=== PATIENT | female | born 1975 | race Hispanic/Latino ===

== ENCOUNTER 2017-02-02 05:48 | Observation (INO) | payer OTHER ==
[2017-01-29 11:40] LABS: Basophils % (Auto) 0.8 % (0.0-1.8); Eosinophils % (Auto) 4.4 % (0.0-4.3); Hematocrit 38.1 % (30.3-42.9); Hemoglobin 12.4 gm/dl (10.1-14.3); Mean Corpuscular HGB Conc 33 % (30-34); Mean Corpuscular Hemoglobin 29 pg (28-32); Mean Corpuscular Volume 89 fl (79-97); Platelet Count 334 K/mm3 (140-440); Red Blood Count 4.29 M/mm3 (3.65-5.03); Red Cell Distribution Width 14.1 % (13.2-15.2); White Blood Count 6.8 K/mm3 (4.5-11.0)
--- NOTE | 2017-02-01 20:12 | History and Physical Report ---
History of Present Illness Date of examination: 01/29/17 Chief complaint: Menometrorrhagia unresponsive to medical therapy and uterine fibriods History of present illness: The patient presents with abnormal periods. The patient admits to monthly self breast exams, regular exercise and healthy diet. The patient complains of heavy bleeding. Menstrual periods have been with excessive flow. Bleeds heavy 3-4/7days for 1year. She requires 3-4 pads that are saturated. She has been managed with OC's and has required Fe infusions for her anemia. Bleeding was unresponsive to OC's and now she desires hysterectomy. Past History : 3 Term Births: 2 Living Children: 2 Para: 2 Spont. Ab: 1 # 1 Delivery type: # 2 Delivery type: [employer] History Operations: Tubal Ligation Abnormal PAP: negative Uterine Anomaly: positive fibroids Infection History Hx of STD: None Active Medications (reviewed today): IBUPROFEN 800 MG TABS (IBUPROFEN) 1 po TID (PRN) OXYCODONE-ACETAMINOPHEN 5-325 MG TABS (OXYCODONE-ACETAMINOPHEN) 1-2po q6h FLONASE 50 MCG/ACT SUSP (FLUTICASONE PROPIONATE) 2 sprays, each nostril x1 qd ZYRTEC ALLERGY TABS (CETIRIZINE HCL TABS) LIDOCAINE PTCH (LIDOCAINE PTCH) TRANEXAMIC ACID 650 MG TABS (TRANEXAMIC ACID) 1300 mg(2 tabs) 3 times daily ( 3900 mg daily) for up to 5 days during monthly menstruation Current Allergies (reviewed today): No known allergies Past Medical History: Reviewed history from 12/24/2016 and no changes required: Wrist, pain managed by Dr. Potts (Orthopedist) Anemia Past Surgical History: Reviewed history from 12/24/2016 and no changes required: Tubal Ligation Family History Summary: Reviewed history and no changes required: 02/01/2017 Aunt - Has Family History of Cervical Cancer - maternal - Entered On: 01/19/2017 Other family member - Has No Family History of Biliary Tract Cancer - Entered On : 01/19/2017 Other family member - Has No Family History of Breast Cancer - Entered On: 2016 Other family member - Has No Family History of Brain Cancer - Entered On: 2016 Other family member - Has No Family History of Colon Cancer - Entered On: 2016 Other family member - Has No Family History of DVT/PE on OCP - Entered On: 2016 Other family member - Has No Family History of Kidney/Urinary Tract Cancer - Entered On: 01/19/2017 Other family member - Has No Family History of Ovarvian Cancer - Entered On: Other family member - Has No Family History of Pancreatic Cancer - Entered On: Other family member - Has No Family History of Stomach Cancer - Entered On: 01/19 Other family member - Has No Family History of Small Bowel Cancer - Entered On: 01/19/2017 Other family member - Has No Family History of Uterine Cancer - Entered On: 01/19 Father (biol.) - Has Family History of Melanoma - Entered On: 01/19/2017 General Comments - FH: Maternal uncle multiple myeloma Maternal uncle Lymphoma Social History: Reviewed history from 12/24/2016 and no changes required: Patient is Smoking History: Patient has never smoked. Risk Factors: Smoked Tobacco Use: Never smoker Alcohol use: yes Previous Tobacco Use: Signed On - 01/07/2017 Smoked Tobacco Use: Never smoker Drug use: no Previous Alcohol Use: Signed On - 01/07/2017 Alcohol use: yes Type: occ Drinks per day: social Exercise: yes Mammogram History: Date of Last Mammogram: 12/30/2016 Review of Systems General Denies fever, chills, sweats, anorexia, fatigue, weakness, malaise, weight loss and sleep disorder. Complains of menorrhagia. Denies vaginal discharge, incontinence, dysuria, hematuria, urinary frequency, amenorrhea, abnormal vaginal bleeding, pelvic pain, genital sores, decreased libido, painful periods, painful sex, urinary urgency, hot flashes, vaginal dryness, vaginal itching and vaginal odor. CV Denies chest pains, palpitations, syncope, dyspnea on exertion, orthopnea, PND and peripheral edema. Resp Denies cough, dyspnea at rest, excessive sputum, hemoptysis, wheezing and pleurisy. GI Denies nausea, vomiting, diarrhea, constipation, change in bowel habits, abdominal pain, melena, hematochezia, jaundice, gas/bloating, indigestion/ heartburn, dysphagia and odynophagia. Endo Denies cold intolerance, heat intolerance, polydipsia, polyphagia, polyuria and unusual weight change. Breast Denies left breast lump, right breast lump, nipple discharge, bloody discharge from nipple, breast pain, abnormal mammogram and breast enlargement. MS Denies back pain, joint pain, joint swelling, muscle cramps, muscle weakness, stiffness, arthritis, sciatica, restless legs, leg pain at night and leg pain with exertion. Derm Denies rash, itching, dryness and suspicious lesions. Neuro Denies paralysis, paresthesias, headache, seizures, tremors, vertigo, transient blindness, frequent falls, frequent headaches and difficulty walking. Psych Denies depression, anxiety, irritability and mood swings. Eyes Denies blurring, diplopia, irritation, discharge, vision loss, eye pain and photophobia. ENT Denies earache, ear discharge, tinnitus, decreased hearing, nasal congestion, nosebleeds, sore throat and hoarseness. Allergy Denies urticaria, allergic rash, hay fever and recurrent infections. Heme Denies abnormal bruising, bleeding and enlarged lymph nodes. Physical Exam Other Exams Abdomen: soft, non-tender Skin: no ulcers, xanthomas Extremities: normal alignment, no joint enlargement, crepitus, masses or tenderness; normal tone and strength Genitourinary Exam Vagina: normal appearance, no discharge, lesions. No evidence of cystocele or rectocele. Cervix: normal appearance, no lesions, no discharge Uterus: enlarged, fixed Adnexa: no masses or tenderness PHYSICAL EXAM Skin no ulcers, xanthomas Chest: respiratory effort normal, clear to auscultation CV: regular, normal S1-S2, no murmur, no rub, no gallop Abdomen: soft, non-tender Musculoskeletal: grossly normal ROM in joints, no joint tenderness or muscle weakness Neuro: grossly normal DTRs, sensation, strength, cranial nerves Extremities: normal alignment, no joint enlargement, crepitus, masses or tenderness; normal tone and strength [employer] Exams Vulva/Vagina: normal appearance, no discharge, lesions. No evidence of cystocele or rectocele. Cervix: normal appearance, no lesions, no discharge Uterus: enlarged, fixed Adnexae: no masses or tenderness Impression & Recommendations: Problem # 1: Excessive and frequent menstruation with irregular cycle (ICD- 626.6) (PUR76-L38.1) Diagnosis explained to patient . Questions answered. Discussed with patient various medical and surgical therapies common for treatment: Hormonal/medical therapy,endometrial ablation or hysterectomy. She desires to proceed with hysterectomy with removal of both of her fallopian tubes and any other indicated procedures. She desires ovarian conservation. She was informed she may require surgery later to have her ovaries removed for a benign or mailgnant condition. She was also informed she will not be able to get after her uterus is removed. Her updated medication list for this problem includes: Ibuprofen 800 Mg Tabs (Ibuprofen) ..... 1 po tid (prn) Problem # 2: Fibroids of uterus, Submucosal (ICD-218.0) (IKB19-Y42.0) Diagnosis explained to patient . Questions answered. Discussed with patient various medical, surgical and radioloigal therapies common for treatment: Hormonal/medical therapy, fibroid embolization, removal of fibroids or hysterectomy Her updated medication list for this problem includes: Ibuprofen 800 Mg Tabs (Ibuprofen) ..... 1 po tid (prn) Oxycodone-acetaminophen 5-325 Mg Tabs (Oxycodone-acetaminophen) ..... 1-2po q6h Consent reviewed and signed . Possible laparoscopy or laparotomy explained to patient. The risks and alternatives for this surgery were reviewed with the patient. She was informed of possible bleeding, infection, injury to bowel, bladder, ureters or other adjacent organs. The patient was instructed/informed the following: The normal length of hospital stay for this procedure. Nothing to eat or drink after midnight the evening prior to surgery. Clear liquids the day before surgery. Fleets enema the day prior to surgery. Pre-op instruction sheets given. Wound care instructions given. Infection precautions reviewed, patient to call for any signs or symptoms of infection. The usual discomforts associated with this procedure were detailed. Proper use of pain medicines was reviewed. Patient was given ample opportunity to have all her questions answered before signing informed consent. She voiced understanding and desires to proceed with the plan of care. Medications Added to Medication List This Visit: 1) Ibuprofen 800 Mg Tabs (Ibuprofen) .... 1 po tid (prn) 2) Oxycodone-acetaminophen 5-325 Mg Tabs (Oxycodone-acetaminophen) .... 1-2po q6h Prescriptions: IBUPROFEN 800 MG TABS (IBUPROFEN) 1 po TID (PRN) #30 x 1 Entered and Authorized by: Joy Leone MD Method used: Print then Give to Patient RxID: [id number] OXYCODONE-ACETAMINOPHEN 5-325 MG TABS (OXYCODONE-ACETAMINOPHEN) 1-2po q6h #30 x 0 Entered and Authorized by: Joy Leone MD Method used: Print then Give to Patient RxID: [id number] Medications and Allergies Allergies Allergy/AdvReac Type Severity Reaction Status Date / Time No Known Allergies Allergy Unverified 01/25/17 15:30 Home Medications Medication Instructions Recorded Confirmed Last Taken Type Cetirizine HCl [ZyrTEC] 10 mg PO DAILY 01/25/17 01/25/17 Unknown History Fluticasone [Flonase] 1 spray NS QDAY 01/25/17 01/25/17 Unknown History Active Meds: Active Medications Celecoxib (Celebrex) 200 mg PO PREOP NR Stop: 02/02/17 23:59 Famotidine (Pepcid) 20 mg PO PREOP NR Stop: 02/02/17 23:59 Fentanyl (Sublimaze) 100 mcg IV ONCE NR Stop: 02/02/17 18:00 Gabapentin (Neurontin) 600 mg PO PREOP NR Stop: 02/02/17 23:59 Lactated Ringer's (Lactated Ringers) 1,000 mls @ 75 mls/hr IV DIRECT KATY Cefazolin Sodium (Ancef/Sterile Water 2 Gm/20 Ml) 2 gm in 20 mls @ 80 mls/hr IV PREOP NR PRN Reason: Protocol Midazolam HCl (Versed) 2 mg IV PREOP NR Stop: 02/02/17 23:59 Exam Vital Signs Temp Pulse Resp BP 98.6 F 78 14 120/80 01/29/17 11:20 01/29/17 11:20 01/29/17 11:20 01/29/17 11:20 Results - Labs 01/29/17 11:30 Assessment and Plan - Patient Problems (1) Excessive and frequent menstruation with irregular cycle Status: Chronic (2) Fibroids Status: Chronic Qualifiers: Uterine leiomyoma location: U
[~2017-02-02 05:48] MED LIST: ANCEF/STERILE WATER 2 GM/20 ML 2 GM/20 ML SYRINGE IV NR
[2017-02-02] MEDS ORDERED: NEURONTIN PO NR (06:00)
[2017-02-02] MEDS ORDERED: PEPCID PO NR (06:00)
[2017-02-02] MEDS ORDERED: VERSED IV NR (06:00)
[2017-02-02] MEDS ORDERED: LACTATED RINGERS 1,000 ML IV SCH (06:00)
[2017-02-02] MEDS ORDERED: SUBLIMAZE IV NR (06:00)
[2017-02-02] MEDS ORDERED: NACL BACTERIOSTATIC INFILTRATI ONE (06:48)
[2017-02-02] MEDS ORDERED: DECADRON ONE ×2 (07:19→08:50)
[2017-02-02] MEDS ORDERED: CLONIDINE 1,000 MCG/10 ML VIAL EP ONE (07:20)
[2017-02-02] MEDS ORDERED: MARCAINE-EPI/PF 0.5%-1:200,000 INFILTRATI ONE (07:20)
[2017-02-02] MEDS ORDERED: XYLOCAINE 1% 20 mL ONE (07:21)
[2017-02-02] MEDS ORDERED: NEOSPORIN GU IR ONE ×2 (07:40→09:36)
[2017-02-02] MEDS ORDERED: ZEMURON IV ONE (07:42)
[2017-02-02] MEDS ORDERED: DIPRIVAN 10 MG/ML IV ONE (07:43)
[2017-02-02] MEDS ORDERED: XYLOCAINE MPF 2% ONE (07:43)
[2017-02-02] MEDS ORDERED: DILAUDID ONE ×3 (07:43→12:13)
[2017-02-02] MEDS ORDERED: CALCIUM CHLORIDE IV ONE ×2 (08:08→09:37)
[2017-02-02] MEDS ORDERED: THROMBIN (BOVINE) TP ONE ×2 (08:09→09:38)
[2017-02-02] MEDS ORDERED: PROAIR IH ONE (08:50)
[2017-02-02] MEDS ORDERED: ZOFRAN ONE (08:58)
[2017-02-02] MEDS ORDERED: LACTATED RINGERS 1,000 ML ONE (09:04)
[2017-02-02] MEDS ORDERED: NACL 0.9% IR ONE (09:36)
[2017-02-02] MEDS ORDERED: WATER FOR IRRIG STERILE IR ONE (11:00)
--- NOTE | 2017-02-02 11:32 | Anesthesia Day of Surgery ---
Anesthesia Day of Surgery - Day of Surgery Patient Examined: Yes Patient H&P Reviewed: Yes Patient is NPO: Yes
--- NOTE | 2017-02-02 11:32 | Anesthesia Consultation ---
Anesthesia Consult and Med Hx Date of service: 02/02/17 - Airway Anesthetic Teeth Evaluation: Good ROM Head & Neck: Adequate Mental/Hyoid Distance: Inadequate Mallampati Class: Class III Intubation Access Assessment: Possibly Difficult - Pulmonary Exam CTA: Yes - Cardiac Exam Cardiac Exam: RRR - Pre-Operative Health Status ASA Pre-Surgery Classification: ASA2 - Pulmonary Hx Sleep Apnea: Yes (No CPAP) - Central Nervous System Hx Psychiatric Problems: No - Hematic Hx Anemia: Yes - Other Systems Hx Alcohol Use: Yes (occas) Hx Cancer: No Hx Obesity: Yes
[2017-02-02] MEDS: DILAUDID IV PRN ×3 (11:40→12:15)
[2017-02-02] MEDS ORDERED: ZOFRAN IV PRN ×2 (11:42→13:15)
[2017-02-02] MEDS ORDERED: NARCAN 0.4 MG/1 ML IV PRN (13:15)
[2017-02-02] MEDS ORDERED: REGLAN IV PRN (13:15)
[2017-02-02] MEDS ORDERED: REGLAN PO PRN (13:15)
[2017-02-02] MEDS ORDERED: ZOFRAN PO PRN (13:15)
[2017-02-02] MEDS ORDERED: MORPHINE IV PRN ×2 (13:15)
[2017-02-02] MEDS ORDERED: PERCOCET 5/325 PO PRN (13:15)
[2017-02-02] MEDS: ANCEF/NS 1 GM/50 ML 1 GM/50 ML BAG IV SCH ×2 (14:32→21:36)
--- NOTE | 2017-02-02 14:34 | Operative Report ---
Operative Report Operative Report: Date of procedure: 02/02/2017 Pre-operative diagnosis: 1. Menometrorrhagia 2. Multiple uterine fibroids Post-operative diagnosis: 1. Menometrorrhagia 2. Multiple uterine fibroids 3. Pelvic adhesions Procedure name(s): 1. Robotic-assisted total hysterectomy with bilateral salpingectomy 2. Lysis of adhesions Surgeon: Joy Leone MD Licensed Occupational Therapist: Poppy Tinsley M.D. Anesthesia: General anesthesia Findings: Exam under anesthesia revealed the uterus to be approximately 14 weeks. Uterus was sounded to 11 cm. Grossly normal interrupted fallopian tubes bilaterally. Grossly normal ovaries. Anesthesiologist: Lloyd Levy M.D. Complications: None EBL: <100 mL Procedure: After risks, benefits complications, consequences, and alternatives for this procedure were discussed the patient, and she voiced understanding and desired to proceed, she was taken to the OR where general anesthesia was induced. She was placed in the dorsolithotomy position, exam under anesthesia was as above. She was then prepped and draped in usual sterile fashion. Timeout was performed. Henson catheter was introduced into the bladder. A bivalve speculum was introduced into the vagina, and the anterior lip of the cervix was grasped with a single-tooth tenaculum. The uterus was sounded to approximately 11 cm. The cervix was progressively dilated to allow the large the V care uterine manipulator. The tenaculum and speculum were removed and the Vcare manipulator was secured in place. A solution saturated laparotomy sponge was placed in the vagina. Sterile gloves were placed and attention was turned to the abdomen. A 12 mm Optiview trocar with scope and camera attached was placed through a midline vertical incision was approximately 10 cm superior to the elevated fundus of the uterus. The trocar with camera attached was placed under direct visualization. No bowel, bladder, ureteral or major blood vessel injury was noted. The abdomen was insufflated. Patient was placed in steep Trendelenburg position. Additional trocars were placed in the following positions: 8 mm robotic trocars were placed in the bilateral midclavicular lower abdominal region approximately 10 cm lateral to the midline incision. An additional 5 mm trocar was placed in the right lateral lower abdominal region approximately 2 cm superior to the anterior superior iliac crest. Omentum was adhered to the anterior abdominal wall. Using 30 W of energy the omentum was released. Using the 5 mm laparoscope through the lateral port and the Matty-Juju fascia closure device, the midline trocar was removed and a 0 Vicryl suture was placed through the midline fascia under direct visualization. The trocar was reintroduced. Once the trocars were in the proper position the robot was engaged. The instruments were introduced into the 8 mm trochars. Attention was turned to console. The uterus was elevated, the utero-ovarian ligaments were clamped, cauterized and incised bilaterally using 30 W of energy. Then the round ligaments were clamped , cauterized and incised bilaterally. The anterior leaf of the broad ligament was elevated with both blunt and sharp dissection the bladder flap was created. Once the bladder appeared to be away from the operative field attention was turned the posterior leaf of the broad ligaments. The ligaments were elevated and dissected away from the uterine vessels. Once the outline of the Vcare uterine manipulator was visualized, the uterine vessels were clamped and cauterized bilaterally. Once blanching of the uterus was noted, and the posterior outline of the Vcare manipulator was visualized, and confirmed, colpotomy was performed down to the cup of the manipulator. This incision was extended in a circumferential manner to 9:00 and 3:00 positions. The uterine vessels were clamped, cauterized and incised. The colpotomy was completed. The uterus was then delivered through the vagina. Attention was turned to the adnexa. The pelvis was irrigated with solution warm saline. Once hemostasis was noted the vagina was reapproximated using the V LOC 180 suture. The pelvis was again irrigated with warm normal saline. Once hemostasis was noted, platelet rich plasma was applied for further hemostasis followed by platelet poor plasma to prevent adhesions. Hemostasis was specifically noted on the omentum that was released from the anterior abdominal wall. The ureters were noted to be peristaltic and away from the operative field. The abdomen and pelvis were again visualized, no bowel, bladder, ureteral or major vascular injury was noted, hemostasis was also noted. The trocars were removed. The fascial incision was then ligated. The skin incisions were approximated using 4-0 Vicryl in a subcuticular manner. The incisions were then sealed with Octylseal.The laparotomy sponge was removed from the vagina, and hemostasis was noted. The patient tolerated the procedure well and was taken to recovery room in stable condition. Counts were correct x3. Clear yellow urine was noted draining into the Henson catheter was noted. Drainage of clear yellow urine from the Henson catheter was noted. No vaginal bleeding was noted and procedure.
[2017-02-02] MEDS ORDERED: TORADOL IV SCH (15:00)
[2017-02-02] MEDS ORDERED: TYLENOL PO PRN (15:00)
[2017-02-02] MEDS: TYLENOL PO SCH ×2 (15:20→21:12)
[2017-02-02] MEDS: LACTATED RINGERS 1,000 ML IV SCH ×2 (15:24→23:46)
--- NOTE | 2017-02-02 15:24 | Post Anesthesia Evaluation ---
- Post Anesthesia Evaluation Patient Participated: Yes Airway Patent: Yes Stable Respiratory Function: Yes Nausea/Vomiting: No Temp > 96.8F: Yes Pain Manageable: Yes Adequeate Hydration: Yes Anesthesia Complications: No Block Receding Appropriately: Not Applicable Patient on Ventilator: No
[2017-02-02] MEDS: TORADOL IV SCH ×2 (17:57→23:32)
--- NOTE | 2017-02-02 19:40 | Progress Note ---
Assessment and Plan - Patient Problems (1) History of robot-assisted laparoscopic hysterectomy Current Visit: Yes Status: Acute Plan to address problem: Operative findings and procedure explained, questions answered. UO clear yellow , good. (2) Status post bilateral salpingectomy Current Visit: Yes Status: Acute (3) Excessive and frequent menstruation with irregular cycle Current Visit: Yes Status: Resolved (4) Fibroids Current Visit: Yes Status: Resolved Qualifiers: Uterine leiomyoma location: U Subjective Date of service: 02/02/17 Patient Reports: Positive: no new complaints Objective Vital Signs - 12hr 02/02/17 02/02/17 02/02/17 07:40 07:45 07:50 Temperature Pulse Rate 83 87 84 Respiratory 18 18 18 Rate Blood Pressure 110/66 121/62 114/60 Blood Pressure [Right] O2 Sat by Pulse 97 97 97 Oximetry 02/02/17 02/02/17 02/02/17 07:55 08:07 11:15 Temperature 98 F 96.6 F L Pulse Rate 83 80 84 Respiratory 18 18 20 Rate Blood Pressure 123/61 121/58 125/72 Blood Pressure [Right] O2 Sat by Pulse 97 97 98 Oximetry 02/02/17 02/02/17 02/02/17 11:20 11:25 11:30 Temperature Pulse Rate 78 73 79 Respiratory 20 20 20 Rate Blood Pressure 123/84 121/66 115/60 Blood Pressure [Right] O2 Sat by Pulse 100 100 100 Oximetry 02/02/17 02/02/17 02/02/17 11:45 12:00 12:15 Temperature 97.3 F L Pulse Rate 74 78 65 Respiratory 20 14 14 Rate Blood Pressure 117/72 117/73 115/72 Blood Pressure [Right] O2 Sat by Pulse 100 100 100 Oximetry 02/02/17 02/02/17 02/02/17 12:30 12:50 14:00 Temperature 98 F 97.8 F Pulse Rate 75 68 68 Respiratory 14 16 16 Rate Blood Pressure 116/69 Blood Pressure 123/61 124/64 [Right] O2 Sat by Pulse 100 100 100 Oximetry 02/02/17 02/02/17 02/02/17 15:00 15:52 16:55 Temperature 98 F 98.0 F Pulse Rate 67 68 Respiratory 18 16 Rate Blood Pressure Blood Pressure 116/67 104/68 [Right] O2 Sat by Pulse 100 99 100 Oximetry - General physical appearance well developed, well nourished, no distress - Respiratory normal expansion, normal respiratory effort, clear to auscultation - Abdomen soft, bowel sounds normal - Labs 01/29/17 11:30
[2017-02-02] MEDS: PEPCID PO SCH (21:13)
[2017-02-03] MEDS: TYLENOL PO SCH (04:04)
[2017-02-03 05:11] LABS: Hematocrit 34.3 % (30.3-42.9); Hemoglobin 11.2 gm/dl (10.1-14.3); Mean Corpuscular HGB Conc 33 % (30-34); Mean Corpuscular Hemoglobin 29 pg (28-32); Mean Corpuscular Volume 88 fl (79-97); Platelet Count 301 K/mm3 (140-440); Red Blood Count 3.89 M/mm3 (3.65-5.03); Red Cell Distribution Width 13.7 % (13.2-15.2); White Blood Count 17.8 K/mm3 (4.5-11.0)
[2017-02-03] MEDS: TORADOL IV SCH ×2 (06:30→12:03)
[2017-02-03] MEDS: LACTATED RINGERS 1,000 ML IV SCH (06:37)
[2017-02-03] MEDS ORDERED: TYLENOL PR PRN (09:00)
[2017-02-03] MEDS ORDERED: TYLENOL PO PRN (09:00)
[2017-02-03] MEDS ORDERED: TYLENOL PO ONE (09:30)
[2017-02-03] MEDS: PEPCID PO SCH (10:16)
[2017-02-03 13:08] VITALS: BP 116/69
--- NOTE | 2017-02-03 13:11 | Discharge Summary ---
Providers - Providers Date of Admission: 02/02/17 11:37 Attending physician: RIVERA BAH Primary care physician: WOOD VENEER TAPER Hospitalization Condition: Good Hospital course: Low BP's noted this am however pt was asymptomatic and ambulating without dizziness, lightheadedness or difficulty. No bleeding, +flatus. Desires d/c home Disposition: DC-01 TO HOME OR SELFCARE - Discharge Diagnoses (1) History of robot-assisted laparoscopic hysterectomy Status: Acute (2) Status post bilateral salpingectomy Status: Acute (3) Excessive and frequent menstruation with irregular cycle Status: Resolved (4) Fibroids Status: Resolved Qualifiers: Uterine leiomyoma location: U Core Measure Documentation - Palliative Care Palliative Care/ Comfort Measures: Not Applicable - Core Measures Any of the following diagnoses?: none Exam - Constitutional Vitals: Temp Pulse Resp BP Pulse Ox 98.1 F 57 L 18 96/46 100 02/03/17 08:38 02/03/17 04:50 02/03/17 08:38 02/03/17 08:38 02/03/17 04:50 General appearance: Present: no acute distress - Neck Neck: Present: supple - Respiratory Respiratory effort: normal Respiratory: negative: CTA - Cardiovascular Rhythm: regular - Extremities Extremities: no ischemia, No edema - Abdominal General gastrointestinal: Present: soft, non-tender, non-distended, normal bowel sounds Female genitourinary: Present: deferred - Integumentary Integumentary: Present: clear, warm, dry (Incisions: c/d/i) - Psychiatric Psychiatric: appropriate mood/affect, intact judgment & insight Plan Activity: other (no sex for 8 weeks. Ambulate approximately 1 mile on your property a day. Used to incentive spirometer every hour while awake. No driving.) Weight Bearing Status: Non-Weight Bearing Diet: regular (eat small meals frequently. Avoid salty, spicy and fatty foods. Drink 90 ounces of water a day. Void frequently. ) Wound: open to air, keep clean and dry Special Instructions: no heavy lifting Follow up with: RIVERA BAH MD [Staff Physician] - (as scheduled)
[2017-02-03] MEDS ORDERED: PERCOCET 5/325 PO PRN (13:15)
--- NOTE | 2017-02-03 13:27 | Progress Note ---
Subjective Date of service: 02/03/17 Interval history: 1st POD after Robotic hysterectomy Patient is in the bed, comfortable. Pain is well controlled with pain meds. Ambulated well. No nausea or vomiting. No anesthesia complications Objective - Constitutional Vitals: Vital Signs - 12hr 02/03/17 02/03/17 02/03/17 04:50 08:38 12:08 Temperature 98.4 F 98.1 F 98.0 F Pulse Rate 57 L Respiratory 20 18 18 Rate Blood Pressure 96/46 116/69 Blood Pressure 98/52 [Right] O2 Sat by Pulse 100 Oximetry - Labs CBC & Chem 7: 02/03/17 04:47 Labs: Abnormal lab results 02/03/17 Range/Units 04:47 WBC 17.8 H (4.5-11.0) K/mm3
== END 2017-02-03 15:00 | disposition home or self-care (01) ==
LOC: OR 05:48 → OB 11:37
PROVIDERS: ADMIT Obstetrics & Gynecology; ATTEND Obstetrics & Gynecology
DX: N92.1 Excessive and frequent menstruation with irregular cycle (principal); D25.0 Submucous leiomyoma of uterus; N73.6 Female pelvic peritoneal adhesions (postinfective); Z90.79 Acquired absence of other genital organ(s)
CPT/HCPCS: 36415; 58571; 64450; 81025; 85025; 85027; 86850; 86900; 86901; 88302; 88307; 94760; 96365; 96375; 96376; A4217; G0378; J0690; J0735; J1100; J1170; J1885; J2250; J2270; J2405; J2704; J3010; J7120; S2900